=== PATIENT | female | born 1990 | race Caucasian/White ===

== ENCOUNTER 2021-07-05 19:27 | Emergency (ER) | payer OTHER ==
[~2021-07-05] VITALS: Ht 170.2 cm; Wt 104.5 kg
[~2021-07-05 19:27] MED LIST: FLONASE0.05 MG/AC NS; NORCO 325 MG-51 TAB PO; PRENATAL1 TA1 PO
[2021-07-05] MEDS ORDERED: LEXAPRO20 M1 PO (19:43)
[2021-07-05 20:33] LABS: BASO # 0.03 K/mm3 (0.02-0.10); EOS % 2.5 % (1.0-5.0); HEMATOCRIT 39.5 % (37.0-47.0); HEMOGLOBIN 13.2 g/dL (12.5-16.0); LYMPH# 2.34 K/mm3 (1.50-4.00); MEAN CELL VOLUME 89 fl (78-100); MEAN CORPUSCULAR HEMOGLOBIN 30 pg (27-31); MEAN CORPUSCULAR HGB CONC 33 g/dL (33-37); MEAN PLATELET VOLUME 8.9 fl (7.4-10.4); MONO # 0.81 K/mm3 (0.20-0.80); NEU # 8.68 K/mm3 (1.40-6.50); PLATELET COUNT 317 K/mm3 (130-400); RED BLOOD COUNT 4.45 M/mm3 (4.10-5.30); RED CELL DISTRIBUTION WIDTH 12.4 % (11.5-14.5); WHITE BLOOD COUNT 12.2 K/mm3 (4.8-10.8)
[2021-07-05] MEDS ORDERED: CLEOCIN HCL150 M1 PO (21:56)
[2021-07-05 22:14] VITALS: BP 114/66
== END 2021-07-05 22:14 | disposition home or self-care (01) ==
LOC: ED 19:27
PROVIDERS: Family Medicine
DX: N61.0 Mastitis without abscess (principal); Z20.822 Contact with and (suspected) exposure to COVID-19
CPT/HCPCS: J3490

== ENCOUNTER 2024-09-19 17:58 | Emergency (ER) | payer OTHER ==
[~2024-09-19] VITALS: Ht 165.1 cm; Wt 104.5 kg
[~2024-09-19 17:58] MED LIST changes: +CLEOCIN HCL150 M1 PO; +LEXAPRO20 M1 PO
[2024-09-19] MEDS ORDERED: PHENTERMINE H37.5 M3 PO (18:03)
[2024-09-19] MEDS ORDERED: Ketorolac 30 MG/ML VIAL IM ONE (18:15)
[2024-09-19] MEDS ORDERED: KETOROLAC10 MG PO (20:02)
[2024-09-19] MEDS ORDERED: CYCLOBENZAPRINE10 M1 PO (20:02)
[2024-09-19] MEDS ORDERED: Home Cyclobenzaprine 10 MG #2 TABS/PACK PO ONE (20:15)
[2024-09-19 20:25] VITALS: BP 121/81
== END 2024-09-19 20:26 | disposition home or self-care (01) ==
LOC: ED 17:58
DX: M54.2 Cervicalgia (principal); M25.512 Pain in left shoulder; M25.552 Pain in left hip; E66.9 Obesity, unspecified; V89.2XXA Person injured in unspecified motor-vehicle accident, traffic, initial encounter; Y92.410 Unspecified street and highway as the place of occurrence of the external cause
CPT/HCPCS: J1885